=== PATIENT | female | born 1985 | race Caucasian/White ===

== ENCOUNTER 2022-10-22 10:19 | Emergency (ER) | payer SELFPAY ==
[2022-10-22 10:21] VITALS: BP 127/87; PULSE 60; RESP 17; TEMP 36.4; O2SAT 100; BMI 24.4
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
[2022-10-22 11:25] VITALS: RESP 14
== END 2022-10-22 12:03 | disposition home or self-care (01) ==
LOC: ED 11:26
PROVIDERS: Emergency Provider Emergency Medicine; Visit Provider Emergency Medicine
DX: S43.101A Unspecified dislocation of right acromioclavicular joint, initial encounter (principal); S01.511A Laceration without foreign body of lip, initial encounter; M25.562 Pain in left knee; R51.9 Headache, unspecified; V43.62XA Car passenger injured in collision with other type car in traffic accident, initial encounter
CPT/HCPCS: 70450; 70486; 73030; 99283

== ENCOUNTER → 2023-09-05 | Outpatient (CLI) | payer BC, SELFPAY ==
--- NOTE | 2023-09-05 15:53 | RAD_ITS ---
EXAM: XR LEFT HAND COMPLETE, 3 OR MORE VIEWS CLINICAL INDICATION: injury TECHNIQUE: Frontal, lateral and oblique views of the left hand. COMPARISON: No relevant prior studies available. FINDINGS: BONES/JOINTS: No acute abnormality. SOFT TISSUES: Normal. No soft tissue swelling or gas. No radiopaque foreign body. RAD/Hand Min 3 Views IMPRESSION: Intact left hand. Electronically Signed: Bartolome Wolfe MD at 16:25 EST ,
--- NOTE | 2023-09-05 16:02 | RAD_ITS ---
EXAM: XR LEFT WRIST COMPLETE, 3 OR MORE VIEWS CLINICAL INDICATION: injury TECHNIQUE: Frontal, lateral and oblique views of the left wrist. COMPARISON: No relevant prior studies available. FINDINGS: BONES/JOINTS: No acute abnormality. SOFT TISSUES: Normal. No soft tissue swelling or gas. No radiopaque foreign body. RAD/Wrist min 3 Views IMPRESSION: Intact left wrist. Electronically Signed: Bartolome Wolfe MD at 16:17 EST ,
== END | disposition home or self-care (01) ==
PROVIDERS: Referring Provider Physician Assistant; Visit Provider Physician Assistant
DX: T14.90XA Injury, unspecified, initial encounter (principal)
CPT/HCPCS: 73110; 73130

== ENCOUNTER → 2025-07-02 | Outpatient (CLI) | payer OTHER, SELFPAY ==
--- NOTE | 2025-07-02 16:52 | RAD_ITS ---
PROCEDURE: ANKLE MIN 3 VIEWS; FOOT MIN 3 VIEWS 07/02/2025 REASON FOR EXAM: PAIN TECHNIQUE: Procedure Code: RADANK; RADFO Modality: DX Procedure: ANKLE MIN 3 VIEWS; FOOT MIN 3 VIEWS Laterality: FINDINGS: No acute fracture or dislocation. No significant degenerative changes. The ankle mortise is grossly intact. No focal soft tissue swelling. RAD/Ankle min 3 Views IMPRESSION: As above. Reading Location: [id number]
--- NOTE | 2025-07-02 16:52 | RAD_ITS ---
PROCEDURE: ANKLE MIN 3 VIEWS; FOOT MIN 3 VIEWS 07/02/2025 REASON FOR EXAM: PAIN TECHNIQUE: Procedure Code: RADANK; RADFO Modality: DX Procedure: ANKLE MIN 3 VIEWS; FOOT MIN 3 VIEWS Laterality: FINDINGS: No acute fracture or dislocation. No significant degenerative changes. The ankle mortise is grossly intact. No focal soft tissue swelling. RAD/Foot min 3 Views IMPRESSION: As above. Reading Location: [id number]
== END | disposition home or self-care (01) ==
LOC: MTRAD 16:52
PROVIDERS: Referring Provider Nurse Practitioner; Visit Provider Nurse Practitioner
DX: M79.671 Pain in right foot (principal); M25.571 Pain in right ankle and joints of right foot
CPT/HCPCS: 73610; 73630